=== PATIENT | male | born 1945 | race Caucasian/White ===

== ENCOUNTER → 2018-09-25 08:28 | Outpatient (CLI) | payer MEDICARE, SELFPAY ==
[2018-09-25 09:56] LABS: Add Manual Diff / Slide Review NO; Basophils Absolute Auto 0 /uL (0-100); Basophils Percent Auto 0.3 % (0-2); Eosinophils Absolute Auto 200 /uL (0-450); Eosinophils Percent Auto 3.5 % (2-4); Hematocrit 39.6 % (41-53); Hemoglobin 13.4 g/dL (13.5-17.5); Lymphocytes Absolute Auto 1600 /uL (1100-4500); Lymphocytes Percent Auto 35.3 % (25-40); Mean Corpuscular HGB Conc 33.9 % (30-36); Mean Corpuscular Hemoglobin 31.4 PG (26-34); Mean Corpuscular Volume 92.7 fL (80-100); Monocytes Absolute Auto 300 /uL (0-900); Monocytes Percent Auto 5.9 % (3-14); Neutrophils Absolute Auto 2600 /uL (1500-7000); Platelet Count 139 X10^3/uL (150-400); Red Blood Cell Count 4.27 X10^6/uL (4.5-5.9); Red Cell Distribution Width 13.3 % (11.6-14.8); White Blood Cell Count 4.7 X10^3/uL (4.5-11.0)
[2018-09-25 10:46] LABS: Alanine Aminotransferase 20 IU/L (21-72); Albumin 3.9 g/dL (3.5-5.0); Albumin Globulin Ratio 1.5 (1.0-2.8); Alkaline Phosphatase 92 U/L (38-126); Aspartate Aminotransferase 21 IU/L (17-59); BUN Creatinine Ratio 14.2 (6-22); Bilirubin Total 0.3 mg/dL (0.2-1.3); Blood Urea Nitrogen 17 mg/dL (9-20); Calcium 9.6 mg/dL (8.4-10.2); Carbon Dioxide 30 mmol/L (22-32); Chloride 105 mmol/L (98-107); Estimated Glomerular Filt Rate 59.3 mL/min (>60); Globulin 2.6 g/dL (1.7-4.1); Glucose 101 mg/dL (80-110); HEMOLYSIS < 15 (0-50); Potassium 5.3 mmol/L (3.4-5.1); Sodium 140 mmol/L (137-145); Total Protein 6.5 g/dL (6.3-8.2)
== END ==
PROVIDERS: PCP Internal Medicine; Visit Provider Internal Medicine
DX: D69.49 Other primary thrombocytopenia (principal); C18.7 Malignant neoplasm of sigmoid colon; C24.1 Malignant neoplasm of ampulla of Vater
CPT/HCPCS: 36415; 80053; 85025

== ENCOUNTER → 2019-05-24 14:35 | Outpatient (CLI) | payer MEDICARE, SELFPAY ==
[2019-05-24 15:01] LABS: Add Manual Diff / Slide Review NO; Basophils Absolute Auto 0 /uL (0-100); Basophils Percent Auto 0.5 % (0-2); Eosinophils Absolute Auto 400 /uL (0-450); Eosinophils Percent Auto 8.3 % (2-4); Hematocrit 38.5 % (41-53); Hemoglobin 13.2 g/dL (13.5-17.5); Lymphocytes Absolute Auto 1500 /uL (1100-4500); Lymphocytes Percent Auto 28.7 % (25-40); Mean Corpuscular HGB Conc 34.4 % (30-36); Mean Corpuscular Hemoglobin 32.2 PG (26-34); Mean Corpuscular Volume 93.6 fL (80-100); Monocytes Absolute Auto 300 /uL (0-900); Monocytes Percent Auto 5.5 % (3-14); Neutrophils Absolute Auto 3000 /uL (1500-7000); Platelet Count 143 X10^3/uL (150-400); Red Blood Cell Count 4.11 X10^6/uL (4.5-5.9); Red Cell Distribution Width 13.4 % (11.6-14.8); White Blood Cell Count 5.3 X10^3/uL (4.5-11.0)
[2019-05-24 15:22] LABS: Alanine Aminotransferase 23 IU/L (<50); Albumin 4.6 g/dL (3.5-5.0); Albumin Globulin Ratio 1.6 (1.0-2.8); Alkaline Phosphatase 87 U/L (38-126); Aspartate Aminotransferase 29 IU/L (17-59); Bilirubin Total 0.4 mg/dL (0.2-1.3); Blood Urea Nitrogen 18 mg/dL (9-20); Calcium 9.4 mg/dL (8.4-10.2); Carbon Dioxide 26 mmol/L (22-32); Chloride 102 mmol/L (98-107); Estimated Glomerular Filt Rate > 60.0 mL/min (>60); Globulin 2.9 g/dL (1.7-4.1); Glucose 103 mg/dL (80-110); HEMOLYSIS < 15 (0-50); Potassium 4.9 mmol/L (3.4-5.1); Sodium 138 mmol/L (137-145); Total Protein 7.5 g/dL (6.3-8.2)
[2019-05-24 16:24] LABS: Folate 13.2 ng/mL (2.76-20.0); Vitamin B12 370 pg/mL (239-931)
== END ==
PROVIDERS: PCP Internal Medicine; Referring Provider Internal Medicine; Visit Provider Internal Medicine
DX: C18.7 Malignant neoplasm of sigmoid colon (principal); C24.1 Malignant neoplasm of ampulla of Vater; D69.49 Other primary thrombocytopenia
CPT/HCPCS: 36415; 80053; 82607; 82746; 85025

== ENCOUNTER → 2022-03-12 08:50 | Outpatient (CLI) | payer MEDICARE, SELFPAY ==
[2022-03-12 09:50] LABS: Hematocrit 39.3 % (41-53); Hemoglobin 13.3 g/dL (13.5-17.5); Mean Corpuscular HGB Conc 33.8 % (30-36); Mean Corpuscular Hemoglobin 31.6 PG (26-34); Mean Corpuscular Volume 93.4 fL (80-100); Platelet Count 156 X10^3/uL (150-400); Red Cell Distribution Width 13.2 % (11.6-14.8); White Blood Cell Count 5.2 X10^3/uL (4.5-11.0)
[2022-03-12 09:59] LABS: Hemoglobin A1C% w Est Avg Glu 5.9 % (4.0-6.0)
[2022-03-12 10:16] LABS: HEMOLYSIS < 15 (0-50)
[2022-03-12 10:27] LABS: Alanine Aminotransferase 21 IU/L (<50); Albumin 4.1 g/dL (3.5-5.0); Albumin Globulin Ratio 1.5 (1.0-2.8); Alkaline Phosphatase 86 U/L (38-126); Aspartate Aminotransferase 24 IU/L (17-59); BUN Creatinine Ratio 16.8 (6-22); Bilirubin Total 0.6 mg/dL (0.2-1.3); Blood Urea Nitrogen 18 mg/dL (9-20); Carbon Dioxide 28 mmol/L (22-32); Chloride 102 mmol/L (98-107); Cholesterol 163 mg/dL (140-199); Estimated Glomerular Filt Rate > 60 mL/min (>60); Globulin 2.8 g/dL (1.7-4.1); Glucose 106 mg/dL (80-110); HDL Cholesterol 55 mg/dL (40-60); LDL Cholesterol Calculated 89 mg/dL (<100); Potassium 4.9 mmol/L (3.4-5.1); Sodium 136 mmol/L (137-145); Total Protein 6.9 g/dL (6.3-8.2); Triglycerides 95 mg/dL (35-150)
[2022-03-12 10:53] LABS: TSH w/ Reflex to FT4 2.34 uIU/mL (0.47-4.68)
[2022-03-12 11:59] LABS: Prostate Specific Antigen 1.81 ng/mL (0.10-4.00)
[2022-03-12 12:18] LABS: Vitamin B12 395 pg/mL (239-931)
== END ==
PROVIDERS: PCP Internal Medicine; Referring Provider Internal Medicine; Visit Provider Internal Medicine
DX: C24.1 Malignant neoplasm of ampulla of Vater (principal); R73.01 Impaired fasting glucose; N40.1 Benign prostatic hyperplasia with lower urinary tract symptoms; E53.8 Deficiency of other specified B group vitamins; K86.81 Exocrine pancreatic insufficiency; N13.8 Other obstructive and reflux uropathy
CPT/HCPCS: 36415; 80053; 80061; 82607; 83036; 84153; 84443; 85027

== ENCOUNTER 2022-10-07 14:59 | Emergency (ER) | payer MEDICARE, SELFPAY ==
[2022-10-07 15:05] VITALS: BP 185/88; PULSE 48; RESP 20; TEMP 36.6; O2SAT 98; BMI 23.0
--- NOTE | 2022-10-07 15:56 | DI.CT.S_ITS ---
PROCEDURE: CT HEAD/BRAIN WO CON INDICATIONS: sudden hearing loss for 3 days TECHNIQUE: Noncontrast 4.5 mm thick angled axial sections acquired from the foramen magnum to the vertex, with coronal and sagittal reformats. For radiation dose reduction, the following was used: automated exposure control, adjustment of mA and/or kV according to patient size. COMPARISON: None. FINDINGS: Image quality: Excellent. CSF spaces: Basal cisterns are patent. No extra-axial fluid collections. The ventricles are symmetric in size and shape. Brain: No intracranial bleeds or masses. There is cerebral volume loss for age, with resultant ventricular and sulcal prominence. There are mild periventricular and deep white matter chronic small vessel ischemic changes. There is intracranial internal carotid artery atherosclerosis. Skull and face: Calvarium and visualized facial bones appear intact, without suspicious lesions. Sinuses: Visualized sinuses and mastoids are clear. IMPRESSION: Negative head CT for patient age. No acute intracranial abnormality. Dictated by: Ash Olvera M.D. on 10/07/2022 at 16:18 Approved by: Ash Olvera M.D. on 10/07/2022 at 16:19
--- NOTE | 2022-10-07 18:33 | DI.MRI.S_ITS ---
PROCEDURE: MR HEAD/BRAIN WO CON INDICATIONS: sudden hearing loss L ear TECHNIQUE: Noncontrast axial T1 spin echo, axial T2 fast spin echo, sagittal and axial FLAIR, coronal T2 fast spin echo, axial gradient echo, axial diffusion and ADC through the brain. COMPARISON: None. FINDINGS: Image quality: Excellent. CSF Spaces: Basal cisterns are patent. No extra-axial fluid collections. Ventricles are normal in size and shape. Brain: No intracranial masses or hemorrhage. Telles/white matter interface is normal. Brainstem appears normal. Diffusion-weighted images demonstrate no acute ischemic insult. No chronic ischemic insults. Normal intravascular flow voids are present. Skull and face: Calvarium has normal marrow signal. Orbits appear normal. Sinuses: Mucosal thickening of the left maxillary sinus. Remainder of the paranasal sinuses appear clear. Mastoid air cells are well-aerated. IMPRESSION: MRI brain without acute intracranial abnormalities. No evidence for acute cerebral infarction/ischemia. Left maxillary sinus disease. Age related senescent changes and sequela of chronic small vessel ischemic disease. Dictated by: Jarrod Muhammad M.D. on 10/07/2022 at 20:25 Approved by: Jarrod Muhammad M.D. on 10/07/2022 at 20:25
--- NOTE | 2022-10-07 18:33 | ED.GENADULT ---
HPI - General Adult General Chief complaint: Ear Stated complaint: sudden hearing loss Time Seen by Provider: 10/07/22 15:21 Source: patient Mode of arrival: Ambulatory History of Present Illness HPI narrative: 77-year-old male who is here for evaluation of hearing loss to his left ear. He is unsure of the onset of it but he noticed today when he put his phone to his left ear that he could not hear out of it as well as the right and certainly not as well as he has been able to hear out of in the past. He reports no other associated symptoms to include headache or ringing in his ears or balance issues. He is not had hearing loss in the past. Does not wear hearing aids. He went to the walk-in clinic earlier in the day. He was told that everything looked okay. He states he has a follow-up appointment on Monday with ENT. Related Data Home Medications Medication Instructions Recorded Confirmed cholecalciferol (vitamin D3) 25 25 mcg PO DAILY 03/11/22 10/07/22 mcg (1,000 unit) capsule hyoscyamine sulfate 0.125 mg 0.125 mg PO QID 03/11/22 10/07/22 sublingual tablet (Levsin/SL) ibuprofen 200 mg tablet 400 mg PO Q6H PRN 03/11/22 10/07/22 loperamide 2 mg capsule 2 mg PO QID PRN 03/11/22 10/07/22 mecobalamin (vitamin B12) 500 mcg 500 mcg PO DAILY 07/04/22 10/07/22 chewable tablet Previous Rx's Medication Instructions Recorded hydrocodone 5 mg-acetaminophen 325 1 tab PO Q6H PRN pain #20 tabs 03/11/22 mg tablet tamsulosin 0.4 mg capsule 0.4 mg PO BEDTIME #90 caps 03/11/22 mirtazapine 15 mg tablet 15 mg PO BEDTIME #90 tabs 07/04/22 cedibz-[id number] 1 cap PO .COMPLEX #360 caps 08/02/22 10,000-32,000-42,000 unit capsule,delayed rel (Zenpep) omeprazole 20 mg capsule,delayed 20 mg PO BID #180 caps 08/02/22 release prednisone 20 mg tablet 60 mg PO DAILY 9 days #27 tabs 10/07/22 Allergies Allergy/AdvReac Type Severity Reaction Status Date / Time No Known Drug Allergies Allergy Verified 10/07/22 15:15 Review of Systems ENT Ears, Nose, Mouth, and Throat: Reports system reviewed and no additional complaints, except as documented Neurologic Neurologic: Reports system reviewed and no additional complaints, except as documented Hematologic/Lymphatic On Anticoagulants: No Patient History Medical History Afferent loop syndrome (~2012) Anemia 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 Mother Stroke Brother Colon polyps Brother Colon polyps Sister Brain tumor (benign) Sister ALS (amyotrophic lateral sclerosis) Grandfather Parkinson's disease Grandmother Diabetes mellitus Grandfather Stroke Grandmother Congestive heart failure Family/Other Thyroid cancer Social History details: ([place]), retired professor; remodelling/contruction Smoking Status: Never smoker Smoking Status: Never smoker alcohol intake frequency: holidays/special occasions only Exam Initial Vital Signs Initial Vital Signs: Vital Signs Temperature 97.9 F 10/07/22 15:05 Pulse Rate 48 L 10/07/22 15:05 Respiratory Rate 20 10/07/22 15:05 Blood Pressure 185/88 H 10/07/22 15:05 Pulse Oximetry 98 10/07/22 15:05 Oxygen Delivery Method Room Air 10/07/22 15:05 Const General: cooperative, comfortable and No ill appearing HENMT Head: normal to inspection and normocephalic Ears: external ears normal, TM's normal bilaterally and EAC's normal Face and sinus: normal facial exam Mouth: oral mucosae normal HENMT Other: Patient can hear from his left ear but it does sound muffled compared to his right Skin General: no rashes or lesions noted Neuro General: patient alert, patient awake, patient oriented x3 and moves all extremities Cranial Nerves: CN's II-XI intact bilaterally (Except for Decreased hearing to left ear) Speech: speech normal Motor: muscle tone normal throughout Sensory Exam: no sensory deficits noted Course Orders Ordered: ED Orders 10/07/22 18:33 MR head/brain wo con Stat Discontinued Medications Prednisone (Prednisone 20 Mg Tablet) 60 mg PO NOW ONE Stop: 10/07/22 20:44 Last Admin: 10/07/22 20:54 Dose: 60 mg Documented By: ARIEL Vital Signs Vital signs: Vital Signs - 8 hr 10/07/22 19:36 Pulse Rate 50 L Respiratory Rate 16 Blood Pressure 190/84 H Pulse Oximetry 100 Oxygen Delivery Method Room Air Medical Decision Making Imaging Data CT scan - head: Radiologist's Impression: PROCEDURE:? CT HEAD/BRAIN WO CON ? INDICATIONS:? sudden hearing loss for 3 days ? TECHNIQUE:? Noncontrast 4.5 mm thick angled axial sections acquired from the foramen magnum to the vertex, with coronal and sagittal reformats.? For radiation dose reduction, the following was used:? automated exposure control, adjustment of mA and/or kV according to patient size.? ? COMPARISON:? None. ? FINDINGS:? Image quality:? Excellent.? ? CSF spaces:? Basal cisterns are patent.? No extra-axial fluid collections.? The ventricles are symmetric in size and shape.? ? Brain:? No intracranial bleeds or masses.? There is cerebral volume loss for age, with resultant ventricular and sulcal prominence.? There are mild periventricular and deep white matter chronic small vessel ischemic changes.? There is intracranial internal carotid artery atherosclerosis.? ? Skull and face:? Calvarium and visualized facial bones appear intact, without suspicious lesions.? ? Sinuses:? Visualized sinuses and mastoids are clear.? ? IMPRESSION:? Negative head CT for patient age.? No acute intracranial abnormality. ? MR brain: Radiologist's Impression: PROCEDURE:? MR HEAD/BRAIN WO CON ? INDICATIONS:? sudden hearing loss L ear ? TECHNIQUE:? Noncontrast axial T1 spin echo, axial T2 fast spin echo, sagittal and axial FLAIR, coronal T2 fast spin echo, axial gradient echo, axial diffusion and ADC through the brain.? ? COMPARISON:? None. ? FINDINGS:? Image quality:? Excellent.? ? CSF Spaces:? Basal cisterns are patent.? No extra-axial fluid collections.? Ventricles are normal in size and shape.? ? Brain:? No intracranial masses or hemorrhage.? Telles/white matter interface is normal.? Brainstem appears normal.? Diffusion-weighted images demonstrate no acute ischemic insult.? No chronic ischemic insults.? Normal intravascular flow voids are present.? ? Skull and face:? Calvarium has normal marrow signal.? Orbits appear normal.? ? Sinuses:? Mucosal thickening of the left maxillary sinus. Remainder of the paranasal sinuses appear clear. Mastoid air cells are well-aerated.? ? IMPRESSION:? MRI brain without acute intracranial abnormalities.? No evidence for acute cerebral infarction/ischemia. ? Left maxillary sinus disease. ? Age related senescent changes and sequela of chronic small vessel ischemic disease. MDM Narrative Medical decision making narrative: His CT scan and MRI today are normal. Unsure the exact etiology of the patient's symptoms. Unsure exactly when the symptoms started but potentially a couple days ago. He can hear from his left ear but it is much more muffled compared to the right. There was no signs of any infection. No effusion noted. Patient and are convinced this is a sensorineural hearing loss in that they need to be started on steroids right away as they had a another family member who had a delay in starting steroids and now has permanent hearing loss. I feel that giving him steroids his fairly low risk however I did tell him that he does need to follow-up with the ENT and audiology to have further evaluation and potentially despite the steroids he may still not recover hearing to his left ear. They expressed understanding of this. Discharge patient home with return precautions. Discharge Plan Departure Patient Disposition: Home Clinical Impression: Hearing loss in left ear Instructions: DI for Hearing Loss Activity Restrictions/Additional Instructions: I do recommend that you continue to take all of your medications as directed. Also recommend that you keep your follow-up appointment that is scheduled for Monday. Return to the emergency department for new or worsening symptoms. Prescriptions: New prednisone 20 mg tablet 60 mg PO DAILY 9 Days Qty: 27 0RF No Action omeprazole 20 mg capsule,delayed release(DR/EC) 20 mg PO BID Qty: 180 3RF Zenpep 10,000-32,000 -42,000 unit capsule,delayed release(DR/EC) 1 cap PO .COMPLEX Qty: 360 6RF Rx Instructions: 4 caps orally with a meal and 2 caps orally with a snack; cholecalciferol (vitamin D3) 25 mcg (1,000 unit) capsule 25 mcg PO DAILY hyoscyamine sulfate [Levsin/SL] 0.125 mg tablet, sublingual 0.125 mg PO QID ibuprofen 200 mg tablet 400 mg PO Q6H PRN loperamide 2 mg capsule 2 mg PO QID PRN hydrocodone-acetaminophen 5-325 mg tablet 1 tab PO Q6H PRN (Reason: pain) Qty: 20 0RF tamsulosin 0.4 mg capsule 0.4 mg PO BEDTIME Qty: 90 3RF mecobalamin (vitamin B12) 500 mcg tablet,chewable 500 mcg PO DAILY mirtazapine 15 mg tablet 15 mg PO BEDTIME Qty: 90 3RF Referrals: Jeff Ann MD [Primary Care Provider] - Stand Alone Forms: Patient Portal/API
[2022-10-07 19:36] VITALS: BP 190/84; PULSE 50; RESP 16; O2SAT 100
[2022-10-07] MEDS: predniSONE 20 MG TABLET 60 MG PO (20:54)
== END 2022-10-07 21:07 | disposition home or self-care (01) ==
PROVIDERS: Emergency Provider Emergency Medicine; PCP Internal Medicine
DX: H91.92 Unspecified hearing loss, left ear (principal)
CPT/HCPCS: 70450; 70551; 99284

== ENCOUNTER → 2023-02-16 16:48 | Outpatient (CLI) | payer MEDICARE, SELFPAY ==
[2023-02-16 17:49] LABS: Hematocrit 35.7 % (41-53); Hemoglobin 12.5 g/dL (13.5-17.5); Mean Corpuscular HGB Conc 34.9 % (30-36); Mean Corpuscular Hemoglobin 32.1 PG (26-34); Mean Corpuscular Volume 91.9 fL (80-100); Platelet Count 181 X10^3/uL (150-400); Red Blood Cell Count 3.89 X10^6/uL (4.5-5.9); Red Cell Distribution Width 13.2 % (11.6-14.8); White Blood Cell Count 5.4 X10^3/uL (4.5-11.0)
[2023-02-16 18:10] LABS: Alanine Aminotransferase 25 IU/L (<50); Albumin 4.2 g/dL (3.5-5.0); Albumin Globulin Ratio 1.4 (1.0-2.8); Alkaline Phosphatase 86 U/L (38-126); Aspartate Aminotransferase 24 IU/L (17-59); BUN Creatinine Ratio 19.6 (6-22); Bilirubin Total 0.5 mg/dL (0.2-1.3); Blood Urea Nitrogen 21 mg/dL (9-20); Calcium 9.4 mg/dL (8.4-10.2); Carbon Dioxide 29 mmol/L (22-32); Chloride 95 mmol/L (98-107); Estimated Glomerular Filt Rate > 60 mL/min (>60); Globulin 2.9 g/dL (1.7-4.1); Glucose 93 mg/dL (80-110); HEMOLYSIS < 15 (0-50); Potassium 4.7 mmol/L (3.4-5.1); Sodium 129 mmol/L (137-145); Total Protein 7.1 g/dL (6.3-8.2)
[2023-02-16 18:12] LABS: Hemoglobin A1C% w Est Avg Glu 6.1 % (4.0-6.0)
[2023-02-16 18:52] LABS: TSH w/ Reflex to FT4 1.84 uIU/mL (0.47-4.68)
[2023-02-16 18:55] LABS: Vitamin B12 943 pg/mL (239-931)
== END ==
PROVIDERS: PCP Internal Medicine; Referring Provider Internal Medicine; Visit Provider Internal Medicine
DX: R73.01 Impaired fasting glucose (principal); D64.9 Anemia, unspecified; G20.A1 Parkinson's disease without dyskinesia, without mention of fluctuations; C24.1 Malignant neoplasm of ampulla of Vater
CPT/HCPCS: 36415; 80053; 82607; 83036; 84443; 85027

== ENCOUNTER → 2023-11-07 14:51 | Outpatient (CLI) | payer MEDICARE, SELFPAY ==
[2023-11-07 15:59] LABS: Hematocrit 36.1 % (41-53); Hemoglobin 12.3 g/dL (13.5-17.5); Mean Corpuscular Hemoglobin 31.8 PG (26-34); Mean Corpuscular Volume 93.4 fL (80-100); Platelet Count 171 X10^3/uL (150-400); Red Blood Cell Count 3.87 X10^6/uL (4.5-5.9); Red Cell Distribution Width 13.3 % (11.6-14.8); White Blood Cell Count 3.9 X10^3/uL (4.5-11.0)
[2023-11-07 17:06] LABS: Alanine Aminotransferase 28 IU/L (<50); Albumin 4.1 g/dL (3.5-5.0); Albumin Globulin Ratio 1.5 (1.0-2.8); Alkaline Phosphatase 158 U/L (38-126); Aspartate Aminotransferase 24 IU/L (17-59); BUN Creatinine Ratio 18.3 (6-22); Bilirubin Total 0.5 mg/dL (0.2-1.3); Blood Urea Nitrogen 20 mg/dL (9-20); Calcium 9.1 mg/dL (8.4-10.2); Carbon Dioxide 27 mmol/L (22-32); Chloride 100 mmol/L (98-107); Estimated Glomerular Filt Rate > 60 mL/min (>60); Globulin 2.7 g/dL (1.7-4.1); Glucose 90 mg/dL (80-110); HEMOLYSIS < 15 (0-50); Potassium 4.9 mmol/L (3.4-5.1); Sodium 132 mmol/L (137-145); Total Protein 6.8 g/dL (6.3-8.2)
[2023-11-07 17:39] LABS: Ferritin 43 ng/mL (18-464)
[2023-11-07 18:02] LABS: HEMOLYSIS < 15 (0-50); Iron 111 ug/dL (49-181)
[2023-11-07 18:14] LABS: Transferrin 237 mg/dL (206-381)
[2023-11-07 18:33] LABS: Hemoglobin A1C% w Est Avg Glu 5.8 % (4.0-6.0)
[2023-11-07 20:49] LABS: Percent Iron Saturation 34 % (20-50); Total Iron Binding Capacity 323 ug/dL (261-462)
== END ==
PROVIDERS: PCP Internal Medicine; Referring Provider Internal Medicine; Visit Provider Internal Medicine
DX: D64.9 Anemia, unspecified (principal); R73.01 Impaired fasting glucose; D69.6 Thrombocytopenia, unspecified
CPT/HCPCS: 36415; 80053; 82728; 83036; 83540; 83550; 85027

== ENCOUNTER → 2024-04-30 15:02 | Outpatient (CLI) | payer MEDICARE, SELFPAY ==
[2024-04-30 15:32] LABS: Hemoglobin 12.4 g/dL (13.5-17.5); Mean Corpuscular HGB Conc 33.5 % (30-36); Mean Corpuscular Hemoglobin 31.5 PG (26-34); Mean Corpuscular Volume 94.2 fL (80-100); Platelet Count 170 X10^3/uL (150-400); Red Blood Cell Count 3.92 X10^6/uL (4.5-5.9); Red Cell Distribution Width 13.8 % (11.6-14.8); White Blood Cell Count 4.6 X10^3/uL (4.5-11.0)
[2024-04-30 16:01] LABS: Alanine Aminotransferase 77 IU/L (<50); Albumin 4.3 g/dL (3.5-5.0); Albumin Globulin Ratio 1.7 (1.0-2.8); Alkaline Phosphatase 249 U/L (38-126); Amylase 38 U/L (30-110); Aspartate Aminotransferase 54 IU/L (17-59); BUN Creatinine Ratio 16.3 (6-22); Bilirubin Total 0.8 mg/dL (0.2-1.3); Blood Urea Nitrogen 17 mg/dL (9-20); Calcium 9.6 mg/dL (8.4-10.2); Carbon Dioxide 28 mmol/L (22-32); Chloride 93 mmol/L (98-107); Estimated Glomerular Filt Rate > 60 mL/min (>60); Globulin 2.6 g/dL (1.7-4.1); Glucose 94 mg/dL (80-110); HEMOLYSIS < 15 (0-50); Lipase 12 U/L (23-300); Sodium 129 mmol/L (137-145); Total Protein 6.9 g/dL (6.3-8.2)
[2024-04-30 16:39] LABS: TSH w/ Reflex to FT4 1.92 uIU/mL (0.47-4.68)
== END ==
PROVIDERS: PCP Internal Medicine; Referring Provider Internal Medicine; Visit Provider Internal Medicine
DX: C24.1 Malignant neoplasm of ampulla of Vater (principal); R94.6 Abnormal results of thyroid function studies; K86.81 Exocrine pancreatic insufficiency
CPT/HCPCS: 36415; 80053; 82150; 83690; 84443; 85027

== ENCOUNTER → 2024-07-08 14:45 | Outpatient (CLI) | payer MEDICARE, SELFPAY ==
[2024-07-08 16:13] LABS: Hemoglobin 12.2 g/dL (13.5-17.5); Mean Corpuscular HGB Conc 33.7 % (30-36); Mean Corpuscular Hemoglobin 31.9 PG (26-34); Mean Corpuscular Volume 94.6 fL (80-100); Platelet Count 147 X10^3/uL (150-400); Red Blood Cell Count 3.81 X10^6/uL (4.5-5.9); Red Cell Distribution Width 13.9 % (11.6-14.8); White Blood Cell Count 3.5 X10^3/uL (4.5-11.0)
[2024-07-08 16:35] LABS: HEMOLYSIS < 15 (0-50); Iron 75 ug/dL (49-181)
[2024-07-08 16:36] LABS: Alanine Aminotransferase 64 IU/L (<50); Albumin 4.3 g/dL (3.5-5.0); Albumin Globulin Ratio 1.5 (1.0-2.8); Alkaline Phosphatase 200 U/L (38-126); Aspartate Aminotransferase 37 IU/L (17-59); Bilirubin Total 0.6 mg/dL (0.2-1.3); Bilirubin Unconjugated 0.2 mg/dL (0.0-1.1); Blood Urea Nitrogen 19 mg/dL (9-20); Calcium 9.5 mg/dL (8.4-10.2); Carbon Dioxide 27 mmol/L (22-32); Chloride 99 mmol/L (98-107); Estimated Glomerular Filt Rate > 60 mL/min (>60); Globulin 2.9 g/dL (1.7-4.1); Glucose 99 mg/dL (80-110); HEMOLYSIS < 15 (0-50); Potassium 4.5 mmol/L (3.4-5.1); Sodium 134 mmol/L (137-145); Total Protein 7.2 g/dL (6.3-8.2)
[2024-07-08 16:47] LABS: Percent Iron Saturation 25 % (20-50); Total Iron Binding Capacity 303 ug/dL (261-462); Transferrin 243 mg/dL (206-381)
== END ==
PROVIDERS: PCP Internal Medicine; Referring Provider Internal Medicine Gastroenterology; Visit Provider Internal Medicine Gastroenterology
DX: C24.1 Malignant neoplasm of ampulla of Vater (principal); R82.998 Other abnormal findings in urine; R74.8 Abnormal levels of other serum enzymes; R19.5 Other fecal abnormalities
CPT/HCPCS: 36415; 80048; 80076; 83540; 83550; 85027

== ENCOUNTER → 2024-07-09 10:24 | Outpatient (CLI) | payer MEDICARE, SELFPAY ==
--- NOTE | 2024-07-09 10:28 | DI.CT.S_ITS ---
PROCEDURE: CT ABDOMEN PELVIS W CON INDICATIONS: CANCER AMPULLA OF VATER,DARK URINE,LIGHT STOOLS TECHNIQUE: After the administration of intravenous contrast, axial sections acquired from the lung bases to the pubic symphysis. Coronal and sagittal reformats were performed. For radiation dose reduction, the following was used: automated exposure control, adjustment of mA and/or kV according to patient size. COMPARISON: None. FINDINGS: Image quality: Diagnostic. Lower Chest: No significant findings. ABDOMEN: Liver: No solid mass. Gallbladder: Surgically absent. Biliary ducts: Central and intrahepatic biliary dilatation with areas of pneumobilia most consistent with postsurgical changes. Pancreas: No definite pancreatic tissue is visualized, likely surgically absent from prior pancreaticoduodenectomy. Spleen: Size is within normal limits. Adrenal Glands: No adrenal nodules. Kidneys and Ureters: No hydronephrosis. No solid mass. No complex renal cystic lesion which requires follow up. Left renal simple cysts. Stomach and Bowel: Normal colonic caliber, without significant wall thickening. Postsurgical changes in the distal sigmoid colon with patent anastomosis. No small bowel obstruction. Peritoneum: No abnormal intraperitoneal fluid. No free air. Ventral Wall: No significant ventral hernia. Abdominal Nodes: No retroperitoneal or mesenteric adenopathy by size criteria. Vessels: Aorta and inferior vena cava are normal in size. PELVIS: Pelvic Organs: Unremarkable. Bladder: No bladder wall thickening, accounting for underdistention. Pelvic Nodes: No enlarged lymph nodes. Miscellaneous: No inguinal hernias are seen. Bones: No aggressive osseous abnormality. Multilevel degenerative changes without acute vertebral body compression fracture. IMPRESSION: Postsurgical changes most consistent with prior Whipple procedure. No visible pancreatic parenchyma visualized without suspicious mass in the surgical bed. Marked central and intrahepatic biliary dilatation without visible obstruction. If clinically appropriate, further evaluation with contrast MRI can be performed. Approved by: Mellisa Shaa M.D.,Ph.D. on 07/11/2024 at 15:12
== END ==
PROVIDERS: PCP Internal Medicine; Referring Provider Internal Medicine Gastroenterology; Visit Provider Internal Medicine Gastroenterology
DX: C24.1 Malignant neoplasm of ampulla of Vater (principal); N28.1 Cyst of kidney, acquired; R82.998 Other abnormal findings in urine; R19.5 Other fecal abnormalities; R74.8 Abnormal levels of other serum enzymes; Z90.49 Acquired absence of other specified parts of digestive tract; Z98.0 Intestinal bypass and anastomosis status
CPT/HCPCS: 74177; Q9967

== ENCOUNTER → 2024-12-31 15:02 | Outpatient (CLI) | payer MEDICARE, SELFPAY ==
--- NOTE | 2024-12-31 15:15 | DI.RAD.S_ITS ---
PROCEDURE: XR ABDOMEN 1V INDICATIONS: bile duct stricture TECHNIQUE: One view of the abdomen acquired. COMPARISON: None. FINDINGS: Surgical changes and devices: Three stents are visualized projecting over the mid upper abdomen. Bowel: Bowel gas pattern is normal. Soft tissues: Three stents are visualized projecting over the mid upper abdomen. One of the stents appears to undergo a hairpin turn toward the distal/jejunal aspect; however, further imaging is needed to determine exact course (consider CT versus lateral abdominal radiograph as appropriate). Multiple dilated and gas distended bile ducts are visualized in the left liver and near the hepatic hilum. Gas outlining the right liver contour may reflect pneumoperitoneum versus bowel gas. Bones: No suspicious bony lesions. IMPRESSION: 1. Three stents are visualized projecting over the mid upper abdomen. One of the stents appears to undergo a hairpin turn toward the distal/jejunal end; however, further imaging is needed to determine exact course. Consider CT for further evaluation. 2. Multiple dilated and gas distended bile ducts are visualized in the left liver and near the hepatic hilum. While pneumobilia is expected in this patient, dilation may suggest stent malfunction. 3. Gas outlining the right liver contour may reflect pneumoperitoneum versus bowel gas. Correlate with CT or upright/lateral decubitus radiographic imaging, and clinical symptoms. Dictated by: Cristi Koroma M.D. on 12/31/2024 at 17:45 Approved by: Cristi Koroma M.D. on 12/31/2024 at 17:55
[2024-12-31 16:46] LABS: Hematocrit 35.4 % (41-53); Hemoglobin 12.1 g/dL (13.5-17.5); Mean Corpuscular HGB Conc 34.3 % (30-36); Mean Corpuscular Hemoglobin 32.0 PG (26-34); Mean Corpuscular Volume 93.2 fL (80-100); Platelet Count 170 X10^3/uL (150-400)
[2024-12-31 16:54] LABS: Hemoglobin A1C% w Est Avg Glu 5.8 % (4.0-6.0)
[2024-12-31 17:17] LABS: Alanine Aminotransferase 34 IU/L (<50); Albumin 4.0 g/dL (3.5-5.0); Albumin Globulin Ratio 1.5 (1.0-2.8); Alkaline Phosphatase 120 U/L (38-126); Blood Urea Nitrogen 18 mg/dL (9-20); Calcium 9.1 mg/dL (8.4-10.2); Carbon Dioxide 28 mmol/L (22-32); Chloride 98 mmol/L (98-107); Estimated Glomerular Filt Rate > 60 mL/min (>60); Globulin 2.6 g/dL (1.7-4.1); Glucose 121 mg/dL (70-99); HEMOLYSIS < 15 (0-50); Potassium 5.0 mmol/L (3.4-5.1); Sodium 131 mmol/L (137-145); Total Protein 6.6 g/dL (6.3-8.2)
[2024-12-31 17:52] LABS: TSH w/ Reflex to FT4 1.62 uIU/mL (0.47-4.68)
== END ==
PROVIDERS: PCP Internal Medicine; Referring Provider Internal Medicine Gastroenterology; Visit Provider Internal Medicine Gastroenterology
DX: K83.1 Obstruction of bile duct (principal); K83.8 Other specified diseases of biliary tract; K86.81 Exocrine pancreatic insufficiency; R73.01 Impaired fasting glucose
CPT/HCPCS: 36415; 74018; 80053; 83036; 84443; 85027

== ENCOUNTER → 2025-02-17 15:23 | Outpatient (CLI) | payer MEDICARE, SELFPAY ==
--- NOTE | 2025-02-17 15:29 | DI.RAD.S_ITS ---
PROCEDURE: XR ABDOMEN MIN 2V INDICATIONS: BILE DUCT OBSTRUCTION TECHNIQUE: 2 views of the abdomen were acquired. COMPARISON: [facility], CR, XR ABDOMEN 1V, 12/31/2024, 15:12. FINDINGS: Surgical changes and devices: Stable biliary stents in expected location. Anastomotic staple line projecting over the mid pelvis. Bowel: No pneumoperitoneum. Pneumobilia redemonstrated. The bowel gas pattern is nonspecific with gaseous distention of colon and paucity of bowel gas in the left lower quadrant. Soft tissues: No masses; visualized solid organ contours appear normal in size. No suspicious abdominal calcifications. Bones: No suspicious bony abnormalities. IMPRESSION: Stable biliary stents pneumobilia. Nonspecific bowel gas pattern without definite evidence of obstruction. If patient's symptoms persist or worsen, then repeat plain radiographs or CT scan is warranted for further evaluation. Dictated by: Crissy Doyle MD, PhD on 02/18/2025 at 9:43 Approved by: Crissy Doyle MD, PhD on 02/18/2025 at 9:46
[2025-02-17 18:13] LABS: Alanine Aminotransferase 14 IU/L (<50); Albumin 4.2 g/dL (3.5-5.0); Albumin Globulin Ratio 1.6 (1.0-2.8); Alkaline Phosphatase 68 U/L (38-126); Globulin 2.6 g/dL (1.7-4.1); HEMOLYSIS < 15 (0-50); Total Protein 6.8 g/dL (6.3-8.2)
== END ==
PROVIDERS: PCP Internal Medicine; Referring Provider Internal Medicine; Visit Provider Internal Medicine Gastroenterology
DX: K83.1 Obstruction of bile duct (principal); Z98.890 Other specified postprocedural states
CPT/HCPCS: 36415; 74019; 80076